=== PATIENT | female | born 1985 | race African-American/Black ===

== ENCOUNTER 2021-03-08 11:28 | Emergency (ER) | payer SELFPAY ==
[2021-03-08 11:39] VITALS: BP 113/70
--- NOTE | 2021-03-08 11:57 | Emergency Department Report ---
ED Female HPI - General Chief complaint: Urogenital-Female Stated complaint: VAGINAL ITCHING Time Seen by Provider: 03/08/21 11:42 Source: patient, primary care sales representative Mode of arrival: Ambulatory Limitations: Language Barrier - History of Present Illness Initial comments: Maggy, secretary [employer]/patient representative personal service used for Serbian interpretation as this is her [place] language, she is present for HPI, ROS, PE, discussion, disposition Patient is a 35-year-old female presents emergency room with complaints of vaginal itching that began 3 days ago. She states that it is very irritated. She denies any dysuria, urinary symptoms, vaginal discharge, vaginal lesions, abdominal pain, pelvic pain, nausea, vomiting, diarrhea. She is currently on her menstrual cycle. No past medical history. No allergies to medications. She states that she is sexually active with one partner and denies any concerns for STDs. - Related Data Previous Rx's Medication Instructions Recorded Last Taken Type Fluconazole [Diflucan TAB] 100 mg PO QDAY 3 Days #3 tablet 03/08/21 Unknown Rx Miconazole 2% [Monistat 7 Vag 1 applicator VG QHS #1 tube 03/08/21 Unknown Rx Cream] metroNIDAZOLE [Flagyl] 500 mg PO BID 7 Days #14 tab 03/08/21 Unknown Rx ED Review of Systems ROS: Stated complaint: VAGINAL ITCHING Other details as noted in HPI Comment: All other systems reviewed and negative ED Past Medical Hx - Past Medical History Previous Medical History?: No - Surgical History Past Surgical History?: No - Medications Home Medications: Home Medications Medication Instructions Recorded Confirmed Last Taken Type Fluconazole [Diflucan TAB] 100 mg PO QDAY 3 Days #3 tablet 03/08/21 Unknown Rx Miconazole 2% [Monistat 7 Vag 1 applicator VG QHS #1 tube 03/08/21 Unknown Rx Cream] metroNIDAZOLE [Flagyl] 500 mg PO BID 7 Days #14 tab 03/08/21 Unknown Rx ED Physical Exam - General Limitations: No Limitations General appearance: alert, in no apparent distress - Head Head exam: Present: atraumatic, normocephalic - Eye Eye exam: Present: normal appearance - ENT ENT exam: Present: mucous membranes moist - Respiratory Respiratory exam: Present: normal lung sounds bilaterally. Absent: respiratory distress, wheezes, rales, rhonchi, stridor, chest wall tenderness, accessory muscle use, decreased breath sounds, prolonged expiratory - Cardiovascular Cardiovascular Exam: Present: regular rate, normal rhythm, normal heart sounds. Absent: systolic murmur, diastolic murmur, rubs, gallop - GI/Abdominal GI/Abdominal exam: Present: soft, normal bowel sounds. Absent: distended, tenderness, guarding, rebound, rigid - Neurological Exam Neurological exam: Present: alert, oriented X3 - Psychiatric Psychiatric exam: Present: normal affect, normal mood - Skin Skin exam: Present: warm, dry, intact ED Course Vital Signs 03/08/21 11:36 Temperature 98.8 F Pulse Rate 77 Respiratory 16 Rate Blood Pressure 113/70 [Left] O2 Sat by Pulse 100 Oximetry ED Medical Decision Making - Medical Decision Making Maggy, secretary [employer]/patient representative personal service used for Serbian interpretation as this is her [place] language, she is present for HPI, ROS, PE, discussion, disposition Patient is a 35-year-old female presents emergency room with complaints of vaginal itching that began 3 days ago. She states that it is very irritated. She denies any dysuria, urinary symptoms, vaginal discharge, vaginal lesions, abdominal pain, pelvic pain, nausea, vomiting, diarrhea. She is currently on her menstrual cycle. No past medical history. No allergies to medications. She states that she is sexually active with one partner and denies any concerns for STDs. Vitals are normal. No abdominal tenderness on exam. Symptoms appear likely consistent with vaginitis. She denies any concerns for STDs and politely declines prophylactic treatment. Patient is not having any urinary symptoms to suggest UTI. pt given prescription for medication and discussed the importance of outpatient follow-up for resolution of symptoms. Advised patient Please use medication as prescribed. Follow-up with your primary care doctor. Return to emergency room for any new or worsening symptoms Critical care attestation.: If time is entered above; I have spent that time in minutes in the direct care of this critically ill patient, excluding procedure time. ED Disposition Clinical Impression: Vaginal itching Disposition: HOME / SELF CARE / HOMELESS Is pt being admited?: No Does the pt Need Aspirin: No Condition: Stable Instructions: Vaginitis, [id number] Additional Instructions: Please use medication as prescribed. Follow-up with your primary care doctor. Return to emergency room for any new or worsening symptoms Utilice la medicacin segn lo prescrito. Shilpa un seguimiento con stiles mdico de atencin primaria. Regrese a la rashmi de emergencias por cualquier sntoma nuevo o que empeore Prescriptions: Miconazole 2% [Monistat 7 Vag Cream] 1 applicator VG QHS #1 tube Fluconazole [Diflucan TAB] 100 mg PO QDAY 3 Days #3 tablet metroNIDAZOLE [Flagyl] 500 mg PO BID 7 Days #14 tab Referrals: BRYN SHAH MD [Staff Physician] - 2-3 Days Time of Disposition: 11:55 Print Language: AMHARIC
== END 2021-03-08 12:20 | disposition home or self-care (01) ==
LOC: ED 11:28
DX: N89.8 Other specified noninflammatory disorders of vagina (principal); Z79.899 Other long term (current) drug therapy
CPT/HCPCS: 99282